=== PATIENT | female | born 1965 | race Caucasian/White ===

== ENCOUNTER 2022-01-01 01:40 | Emergency (ER) | payer BC ==
[2022-01-01 05:04] LABS: HEMOGLOBIN 11.8 gm/dl (12.3-15.3); RED BLOOD COUNT 4.04 M/UL (4.00-5.10); WHITE BLOOD COUNT 6.9 K/UL (4.5-11.0)
[2022-01-01 05:11] LABS: BUN/CREATININE RATIO 29 (0-10)
[2022-01-01] MEDS ORDERED: OMNICEF 300 MG300 MG PO (06:02)
[2022-01-01] MEDS ORDERED: TORADOL 10 MG T10 MG PO (06:02)
== END 2022-01-01 07:00 | disposition home or self-care (01) ==
LOC: ER1 01:40
PROVIDERS: Physician Assistant
DX: N39.0 Urinary tract infection, site not specified (principal); W01.0XXA Fall on same level from slipping, tripping and stumbling without subsequent striking against object, initial encounter
CPT/HCPCS: 72131; 72170; 80053; 81001; 85025; 87086; 93005; 96372; 96374; 96375; 99284; J0696; J1100; J1885; J2270; J2405